=== PATIENT | female | born 1985 | race Caucasian/White ===

== ENCOUNTER 2024-05-13 18:11 | Inpatient (IN) ==
[2024-05-13] MEDS ORDERED: Nalbuphine 10 MG/ML 1 ML VIAL IV PRN (18:27)
[2024-05-13] MEDS ORDERED: Lidocaine 1% VIAL 10 MG/ML 30 ML VIAL INJ PRN (18:27)
[2024-05-13] MEDS ORDERED: Prochlorperazine 5 mg/ml 2 ml VIAL (10 mg) IV PRN (18:27)
[2024-05-13] MEDS: Dinoprostone 10 MG VAG.SUPP VAGINAL ONE (18:49)
[2024-05-13] MEDS ORDERED: Morphine 10 MG/ML VIAL (1 ml) IM PRN (19:13)
[2024-05-13] MEDS ORDERED: Morphine 10 MG/ML VIAL (1 ml) IV PRN (19:16)
[2024-05-13 20:37] LABS: Urine Benzodiazepine Screen None Detected (None Detect); Urine Cannabinoids Screen None Detected (None Detect); Urine Opiates Screen None Detected (None Detect)
[2024-05-14] MEDS: Buffered Lidocaine 1% SYRIN 1 ml INTRADERM ONE (07:21)
[2024-05-14 07:27] LABS: ABS Basophils 0.1 10^3/uL (0.0-0.1); ABS Eosinophils 0.5 10^3/uL (0.0-0.5); ABS Lymphocytes 2.2 10^3/uL (1.0-4.8); ABS Monocytes 0.9 10^3/uL (0.0-0.9); ABS Neutrophils 8.2 10^3/uL (1.5-7.6); Eosinophil % 4.3 %; Hematocrit 35.7 % (35-45); Lymphocyte % 18.3 %; Mean Corpuscular Hgb Conc 33.5 g/dL (31-36); Mean Corpuscular Volume 89.3 fL (80-97); Mean Platelet Volume 10.5 fL (7.5-11.2); Platelet Count 173 10^3/uL (150-450); Red Cell Distribution Width 16.2 % (12-17); White Blood Count 11.9 10^3/uL (3.8-11.8)
[2024-05-14 08:12] LABS: Albumin 3.7 g/dL (3.2-5.2); Albumin/Globulin Ratio 1.3 (1-3); Calcium 9.1 mg/dL (8.6-10.3); Creatinine, Serum 0.69 mg/dL (0.51-0.95); Globulin 2.9 g/dL (2-4); Total Bilirubin 0.4 mg/dL (0.2-1.0); Total Protein 6.6 g/dL (6.4-8.9); eGFR CKD-EPI 112.4 (>60)
[2024-05-14] MEDS: Lactated Ringers 1000 ml BAG 1,000 ML IV SCH ×2 (10:51→13:42)
[2024-05-14] MEDS: Oxytocin in LR 20,000 MILLI.UNIT/1,000 ML BAG IV SCH ×2 (10:51→16:23)
[2024-05-14] MEDS: OBEPIDURAL (200 ML) 200 ML EPIDURAL ONE (12:38)
[2024-05-14] MEDS: Lidocaine 1.5% EPI 1:200,000 30 ML SDV ONE (12:47)
[2024-05-14] MEDS ORDERED: Phenylephrine 40 mcg/mL 10mL (400mcg) SYRINGE IV PUSH PRN ×2 (13:10)
[2024-05-14] MEDS ORDERED: Sodium Citrate/Citric Acid LIQ 15 ML UDC PO PRN (13:10)
[2024-05-14] MEDS: Lactated Ringers 1000 ml BAG 1,000 ML IV ONE ×2 (13:42)
[2024-05-14] MEDS: OBEPIDURAL (200 ML) 200 ML EPIDURAL SCH (13:43)
[2024-05-14 14:03] LABS: Urine Appearance Clear; Urine Bilirubin Negative (Negative); Urine Blood Negative (Negative); Urine Color Colorless; Urine Glucose Negative (Negative); Urine Ketones 1+ (Negative); Urine Nitrite Negative (Negative); Urine Protein Negative (Negative); Urine Specific Gravity 1.005 (1.002-1.030); Urine Urobilinogen Negative (Negative); Urine pH 6.5 (5.0-8.0)
[2024-05-14] MEDS ORDERED: Glycerin ADULT 2.4 gm SUPP PR PRN (16:36)
[2024-05-14] MEDS ORDERED: Lactated Ringers 1000 ml BAG 1,000 ML IV SCH (17:00)
[2024-05-14] MEDS: Witch Hazel PAD JAR TOPICAL PRN (17:59)
[2024-05-14] MEDS: Dibucaine 1% OINT 28.35 GM TUBE PR PRN (17:59)
[2024-05-15 07:10] LABS: ABS Basophils 0.1 10^3/uL (0.0-0.1); ABS Eosinophils 0.3 10^3/uL (0.0-0.5); ABS Lymphocytes 2.7 10^3/uL (1.0-4.8); ABS Monocytes 1.4 10^3/uL (0.0-0.9); ABS Neutrophils 12.1 10^3/uL (1.5-7.6); Eosinophil % 1.8 %; Hematocrit 27.4 % (35-45); Hemoglobin 9.2 g/dL (11.5-14.3); Lymphocyte % 16.3 %; Mean Corpuscular Hemoglobin 30.1 pg (27-33); Mean Corpuscular Hgb Conc 33.7 g/dL (31-36); Mean Corpuscular Volume 89.3 fL (80-97); Platelet Count 163 10^3/uL (150-450); Red Blood Count 3.06 10^6/uL (3.63-4.92); Red Cell Distribution Width 16.5 % (12-17); White Blood Count 16.5 10^3/uL (3.8-11.8)
[2024-05-16 08:41] VITALS: BP 127/82
[2024-05-16] MEDS: RHO D Immune Globulin (HUMAN) 300 MCG = 1,500 I.U. INJ IM ONE (10:41)
== END 2024-05-16 10:57 | disposition home or self-care (01) | DRG 560 ==
LOC: MCHOBOUT 18:11 → MCHOB 18:35
PROVIDERS: ADMIT Obstetrics & Gynecology; ATTEND Obstetrics & Gynecology